=== PATIENT | female | born 2000 | race Two or more races ===

== ENCOUNTER 2023-02-06 19:42 | Emergency (ER) | payer SELFPAY | END 2023-02-06 21:15 | disposition home or self-care (01) | LOC: CSHERS 19:42 | DX: S61.314A Laceration without foreign body of right ring finger with damage to nail, initial encounter (principal); W26.8XXA Contact with other sharp object(s), not elsewhere classified, initial encounter; Y93.G9 Activity, other involving cooking and grilling; Y99.0 Civilian activity done for income or pay | CPT/HCPCS: 99283 ==